=== PATIENT | female | born 1975 | race Caucasian/White ===

== ENCOUNTER 2017-06-17 20:25 | Emergency (ER) | payer MEDICAID ==
[~2017-06-17] VITALS: Ht 157.5 cm; Wt 55.8 kg
[2017-06-17 22:10] VITALS: BP 119/85
== END 2017-06-17 22:10 | disposition home or self-care (01) ==
LOC: ED 20:25
DX: K14.0 Glossitis (principal); Z79.1 Long term (current) use of non-steroidal anti-inflammatories (NSAID)